=== PATIENT | female | born 2000 | race Caucasian/White ===

== ENCOUNTER 2024-08-17 15:13 | Emergency (ER) | payer SELFPAY ==
[2024-08-17 15:26] VITALS: BP 126/79; PULSE 113; RESP 16; TEMP 37.2; O2SAT 100
--- NOTE | 2024-08-17 15:50 | ED_ITS ---
HPI - Wound/Laceration General Chief Complaint: Wound/Laceration Stated Complaint: Cut Finger Time Seen by Provider: 08/17/24 15:35 Source: patient, RN notes reviewed and old records reviewed Mode of arrival: ambulatory Limitations: no limitations History of Present Illness HPI narrative: 24 year old female presents to [facility] care with complaints of laceration to her right middle finger which occurred when she was washing dishes today and she cut it o a glass. Patient reports that her tetanus is not up to date but refuses update of tetanus today. Patient reports no acute pain to right middle finger at dorsal aspect of middle knuckle where patient has small flap laceration with bleeding under control. Onset (ago): hour(s) (1400) Extremity Location: Right: hand (right middle finger mid dorsal joint area) Related Data Allergies Allergy/AdvReac Type Severity Reaction Status Date / Time No Known Allergies Allergy Verified 08/17/24 15:20 Review of Systems Review of Systems: CONSTITUTIONAL: Denies fever, chills, or sweats. CARDIOVASCULAR: Denies chest pain, palpitations, or edema. RESPIRATORY: Denies cough or dyspnea. SKIN: Reports Laceration to the mid aspect of her right middle finger at mid dorsal joint area flap type of laceration present with bleeding under control MUSCULOSKELETAL: Denies musculoskeletal pain NEUROLOGIC: Denies numbness, or weakness. All systems reviewed & are unremarkable except as noted in HPI and below PMFSH Social History Social History (Updated 08/18/24 @ 14:07 by Rosy Kiran NP) Smoking status: Never smoker Alcohol intake: current Alcohol use details: rare social Substance use type: does not use Gender identity (if verbalized by the patient): Female Comments At time of signature, agree with nursing past medical, surgical, social and family history. There is no relevant family history pertinent to the presenting complaint Exam Narrative: GENERAL: Well-appearing, well-nourished, and in no acute distress. HEAD: Normocephalic, atraumatic. NECK: Supple.no lymphadenopathy CHEST: Clear to auscultation. No respiratory distress.SAO2 100% on room air HEART: Regular rate and rhythm. No murmur heard. Normal peripheral pulses. EXTREMITIES: Normal range of motion. No edema. SKIN: Warm, dry, no rash. Reports flap type of laceration to the right middle finger at dorsal aspect at mid joint area 0.5X 0.5cm in size. bleeding controlled see procedure note NEURO: No focal deficits. Alert and oriented x3. Course Course Level of Care: Express Care Visit Vital Signs Vital signs: Vital Signs Temperature 37.2 C 08/17/24 15:26 Pulse Rate 113 H 08/17/24 15:26 Respiratory Rate 16 08/17/24 15:26 Blood Pressure 126/79 08/17/24 15:26 Pulse Oximetry 100 08/17/24 15:26 Temperature 37.2 C 08/17/24 15:26 Pulse Rate 113 H 08/17/24 15:26 Respiratory Rate 16 08/17/24 15:26 Blood Pressure 126/79 08/17/24 15:26 Pulse Oximetry 100 08/17/24 15:26 Procedures Laceration middle finger dorsal mid knuckle: Date: 08/17/24 Time: 15:54 Site: hand (dorsal middle finger) Side (If applicable): right Size (cm): 0.5 Description: flap Depth: simple, single layer Local Anesthetic: lidocaine 1% Amount of anesthesia used (mL): 2 Pre-repair: wound explored, irrigated and other (cleansed with wound cleeanser) ====== Skin Level ====== Skin layer closed with: nylon Size (cm): 4-0 Number of sutures: 3 Technique: simple, interrupted ====== Subcutaneous Layer ====== ====== Muscle Layer ====== ====== Tendon Layer ====== Dressing: laceration of right dorsal middle finger mid joint area sutures with Ethilon 4.0 sutures with 3 simple interrupted sutures applied triple antibiotic ointment and band-aid applied patient tolerated well. MDM - Wound/Laceration MDM Narrative Medical decision making narrative: Wound explored for foreign body and copious irrigation provided with no evidence of FB. Discussed the potential of retained foreign body with the patient and signs/symptoms that should prompt the patient to immediately go to the ED for reevaluation. The wound was explored and no foreign bodies were found. There was no evidence of tendon or nerve lacerations. The wound was closed per procedure note. A sterile dressing was then applied and anticipatory guidance was provided. Tetanus prophylaxis was not given, patient refused. Differential Diagnosis Differential diagnosis: Likely laceration, abrasion, avulsion of skin and other (flap laceration ) Medical Records Attestation: I reviewed the patient's medical records. Critical Care Time Critical Care Time Critical Care Time: No Discharge Plan Discharge Clinical Impression: Laceration Patient Disposition: Home, Self-Care Condition: Stable Instructions: Antibiotic Form, Laceration (ED) Additional Instructions: Keep the area clean and dry No continuous water contact like dishes or swimming You may bathe and wash you hair caution with hair products or lotions Antibiotic ointment to the area 1X time a day dressing of choice watch for infection--redness, swelling, drainage follow up with PCP for suture/staple in removal 10* days recheck with PCP if further concerns or problems antibiotic as prescribed If your symptoms persist, change or worsen significantly before you can contact your personal physician then please, without delay, go to the emergency department for further evaluation. Follow-up with PCP in 7-10 days or sooner if needed 126/79 Patient Language: Turkish Prescriptions: New cephalexin 500 mg capsule 500 mg PO Q12H Qty: 14 0RF Follow-up/Referrals: PHYSICIAN,STAVE SAW OPERATOR [Primary Care Provider] - Time of Disposition: 16:34 Quality Slime Coma Scale Eyes: Open Verbal: Oriented and Alert Motor: Follows Commands Bison Coma Total Score: 15
[2024-08-17] MEDS: LIDOCAINE 1% LOCAL INJ 2 ML AMPUL INFILTRATE (16:00)
== END 2024-08-17 16:38 | disposition home or self-care (01) ==
PROVIDERS: Emergency Provider Registered Nurse
DX: S61.212A Laceration without foreign body of right middle finger without damage to nail, initial encounter (principal); W25.XXXA Contact with sharp glass, initial encounter; Y93.G1 Activity, food preparation and clean up
CPT/HCPCS: 12001; 99203; G0463; J2003